=== PATIENT | female | born 1955 | race Caucasian/White ===

== ENCOUNTER 2017-09-26 11:27 | Emergency (ER) | payer OTHER ==
[~2017-09-26] VITALS: Ht 160 cm; Wt 86.6 kg
[2017-09-26 11:31] VITALS: Ht 160 cm; Wt 86.6 kg
[2017-09-26 14:21] VITALS: BP 131/82
== END 2017-09-26 14:51 | disposition home or self-care (01) ==
LOC: ED 11:27
DX: S43.015A Anterior dislocation of left humerus, initial encounter (principal); I10 Essential (primary) hypertension; Z88.2 Allergy status to sulfonamides; Z88.6 Allergy status to analgesic agent; W18.39XA Other fall on same level, initial encounter; Y93.89 Activity, other specified; Y92.89 Other specified places as the place of occurrence of the external cause; Y99.8 Other external cause status
CPT/HCPCS: J2405; J2704; J3010; Q0092